=== PATIENT | male | born 1965 | race Caucasian/White ===

== ENCOUNTER 2023-10-20 09:38 | Emergency (ER) | payer SELFPAY ==
[~2023-10-20] VITALS: Ht 185.4 cm; Wt 119.0 kg
--- NOTE | ~2023-10-20 | EKG ---
[facility] [address] [facility] [place], [place] [address] Draft EK completed, results pending confirmation PATIENT NAME: KEKE AGUILAR Electrocardiogram DATE OF : 69 PHYSICIAN: PRELIMINARY REPORT #: [id number] REPORT IS CONFIDENTIAL AND NOT TO BE RELEASED WITHOUT AUTHORIZATION
[2023-10-20 10:15] LABS: BASOPHILS 1.1 % (0-2); EOSINOPHILS 2.5 % (0-6); HEMATOCRIT 46.1 % (35.0-50.0); HEMOGLOBIN 16.5 g/dL (12.0-18.0); LYMPHOCYTES 21.4 % (24-44); MCH 31.3 (27-36); MCHC 35.8 g/dl (30-36); MCV 87.5 fl (81-99); MONOCYTES 5.3 % (0-12); NEUTROPHILS 69.7 % (39-80); PLATELET COUNT 303 K/uL (140-440); RBC 5.26 M/ul (4.3-5.7); RDW 13.2 (10.5-15.0)
[2023-10-20] MEDS ORDERED: hydrALAZINE HCL 20 MG/ML VIAL IV ONE ×2 (10:15→12:30)
[2023-10-20 10:25] LABS: ALBUMIN 3.9 g/dL (3.4-5.0); ALBUMIN/GLOBULIN RATIO 1.08 (1.1-2.4); ANION GAP 14.2 (7-21); BILIRUBIN, TOTAL 0.9 ng/dL (0.2-1.0); BUN/CREATININE RATIO 6.36 (6.0-28.6); CALCIUM 8.7 mg/dL (8.5-10.1); CREATININE, SERUM 1.1 mg/dL (0.70-1.30); POTASSIUM 3.2 mmol/L (3.5-5.1); PROTEIN, TOTAL 7.5 g/dL (6.4-8.2)
[2023-10-20] MEDS ORDERED: CRESTOR20 MG PO (12:08)
[2023-10-20] MEDS ORDERED: PLAVIX75 MG PO (12:08)
[2023-10-20] MEDS ORDERED: lisinopriL 10 MG TAB PO ONE (12:30)
[2023-10-20] MEDS ORDERED: LISINOPRIL10 MG PO (13:56)
[2023-10-20 14:23] VITALS: BP 192/96
== END 2023-10-20 14:34 | disposition home or self-care (01) ==
LOC: ED 09:38
PROVIDERS: Emergency Medicine
DX: I63.81 Other cerebral infarction due to occlusion or stenosis of small artery (principal); Z91.09 Other allergy status, other than to drugs and biological substances
CPT/HCPCS: 36415; 70450; 70496; 70498; 70551; 71045; 80053; 85025; 93005; 93010; 93306; J0360